=== PATIENT | female | born 1970 | race Caucasian/White ===

== ENCOUNTER 2024-06-12 11:32 | Emergency (ER) | payer OTHER, SELFPAY ==
--- NOTE | ~2024-06-12 | XR_ITS ---
Left ankle Technique: AP, oblique, and lateral views were obtained. Clinical History: Injury Findings: No acute fracture or dislocation is seen. Osseous alignment is anatomic. Ankle mortise and other visualized joint spaces are preserved. Soft tissues are otherwise unremarkable. Impression: Unremarkable left ankle. Reviewed, dictated and finalized at [facility]. Y TRAINER Impression: Unremarkable left ankle.
[2024-06-12 11:50] VITALS: BP 154/94; PULSE 97; RESP 20; TEMP 37.2; O2SAT 98
--- NOTE | 2024-06-12 12:02 | ED.LOWEXIN ---
HPI - Extremity Injury (Lower) General Chief Complaint: Extremity Injury, Lower Stated Complaint: Fall Injury/Left Ankle Injury Time Seen by Provider: 06/12/24 12:02 Source: patient Mode of arrival: ambulatory Limitations: no limitations History of Present Illness HPI Narrative: 53 y/o female presented for c/o left ankle pain after injury today work. She states she slipped in the ice and snow and rolled the foot/ankle. Endorses an abrasion, swelling and slightly decreased range of motion to the left ankle. Says she caught herself with her hands and landed on the left knee but denies any pain to these sites. Has not yet taken anything for pain. Related Data Home Medications Medication Instructions Recorded Confirmed amlodipine 10 mg tablet 10 mg PO DAILY 06/12/24 06/12/24 dapagliflozin propanediol 5 mg 5 mg PO DAILY 06/12/24 06/12/24 tablet (Farxiga) hydrochlorothiazide 25 mg tablet 25 mg PO DAILY 06/12/24 06/12/24 irbesartan 300 mg tablet 300 mg PO DAILY 06/12/24 06/12/24 omeprazole 20 mg capsule,delayed 20 mg PO DAILY 06/12/24 06/12/24 release propranolol 40 mg tablet 40 mg PO TID 06/12/24 06/12/24 rosuvastatin 10 mg tablet 10 mg PO DAILY 06/12/24 06/12/24 Allergies Allergy/AdvReac Type Severity Reaction Status Date / Time No Known Allergies Allergy Verified 06/12/24 12:12 Review of Systems Review of Systems: CONSTITUTIONAL: Denies body aches, fever, chills CARDIOVASCULAR: Denies chest pain, palpitations, or edema. RESPIRATORY: Denies cough or dyspnea. GASTROINTESTINAL: Denies abdominal pain, nausea, vomiting, or diarrhea. SKIN: Reports left ankle abrasion MUSCULOSKELETAL: reports left ankle pain and swelling NEUROLOGIC: Denies headache, numbness, tingling, or weakness. All systems reviewed & are unremarkable except as noted in HPI and below PMFSH Comments At time of signature, I have reviewed and agree with nursing past medical, surgical, social and family history unless otherwise noted. Please see nursing chart for further information. There is no relevant family history pertinent to the presenting complaint Exam Narrative: GENERAL: Well-appearing CHEST: Speaks in full sentences. No respiratory distress. HEART: Regular rate and rhythm. Normal and equal peripheral pulses. EXTREMITIES: Left foot has normal strength and sensation, normal range of motion with flexion/extension/rotation, but endorses mild ankle pain with movement. Superficial abrasion to anterior ankle. mild lateral ankle swelling. No ecchymosis, No point tenderness. No obvious deformity; alignment normal, pulse palpable and equal bilaterally, skin warm, dry, pink. Capillary refill less than 3 seconds. SKIN: Warm, dry NEURO: Alert and oriented x3. PSYCH: Normal mood and affect Course Course Emergency Course: Patient is aware of diagnosis, understands and agrees to treatment plan. Anticipatory guidance given. Patient agrees to follow-up as directed and is aware of reasons to seek care at the emergency department. Portions of this record may have been created with voice recognition software Level of Care: Express Care Visit Vital Signs Vital signs: Vital Signs Temperature 98.9 F 06/12/24 11:50 Pulse Rate 97 06/12/24 11:50 Respiratory Rate 20 06/12/24 11:50 Blood Pressure 154/94 H 06/12/24 11:50 Pulse Oximetry 98 06/12/24 11:50 Oxygen Delivery Room Air 06/12/24 11:50 Temperature 98.9 F 06/12/24 11:50 Pulse Rate 97 06/12/24 11:50 Respiratory Rate 20 06/12/24 11:50 Blood Pressure 154/94 H 06/12/24 11:50 Pulse Oximetry 98 06/12/24 11:50 Oxygen Delivery Room Air 06/12/24 11:50 Reviewed MDM - Extremity Injury (Lower) MDM Narrative Medical decision making narrative: Discussed physical exam findings and x-ray with patient. Pavan wrap applied.. Advised supportive measures and signs/symptoms to go to the ER. Pt is appropriate for outpt treatment and f/u. Differential Diagnosis Differential diagnosis: Likely ankle sprain and strain and ankle fracture Imaging Data Radiologist's impression: Patient: Carie Humphrey : 1970 MR#: [id number] Age: 53 Acct:[id number] Loc: [facility] ADM Date: 06/12/24Attending Dr: Ordering Physician: Maureen Burns APRN Date of Service: 06/12/24 Procedure(s): XR ankle LT min 3V Accession Number(s): [id number] cc: Jessica, William Beltrán MD; Maureen Burns APRN~ Left ankle Technique: AP, oblique, and lateral views were obtained. Clinical History: Injury Findings: No acute fracture or dislocation is seen. Osseous alignment is anatomic. Ankle mortise and other visualized joint spaces are preserved. Soft tissues are otherwise unremarkable. Impression: Unremarkable left ankle. Discharge Plan Discharge Clinical Impression: Ankle sprain and strain Patient Disposition: Home, Self-Care Condition: Stable Instructions: Ankle Sprain (ED) Additional Instructions: Rest and elevate the left leg; bear weight as tolerated Apply ice 15-20 minute intervals several times a day Keep it wrapped with PAVAN or use a soft ankle splint Motrin 800mg every 8 hours, alternate with Tylenol 1000mg every 8 hours as needed Follow up with your primary care provider as needed go to the ER for symptoms or concerns Prescriptions: No Action amlodipine 10 mg tablet 10 mg PO DAILY omeprazole 20 mg capsule,delayed release(DR/EC) 20 mg PO DAILY hydrochlorothiazide 25 mg tablet 25 mg PO DAILY irbesartan 300 mg tablet 300 mg PO DAILY rosuvastatin 10 mg tablet 10 mg PO DAILY propranolol 40 mg tablet 40 mg PO TID dapagliflozin propanediol [Farxiga] 5 mg Tablet 5 mg PO DAILY Follow-up/Referrals: [place],William Pena MD [Primary Care Provider] - Lux Arias MD [Physician] -
== END 2024-06-12 12:55 | disposition home or self-care (01) ==
PROVIDERS: Emergency Provider Nurse Practitioner Family; PCP Family Medicine
DX: S93.402A Sprain of unspecified ligament of left ankle, initial encounter (principal); S96.912A Strain of unspecified muscle and tendon at ankle and foot level, left foot, initial encounter; Z79.899 Other long term (current) drug therapy; W00.0XXA Fall on same level due to ice and snow, initial encounter
CPT/HCPCS: 73610; 99203; G0463